=== PATIENT | male | born 1955 | race Caucasian/White ===

== ENCOUNTER 2017-07-06 10:03 | Emergency (ER) | payer BC ==
[2017-07-06 11:56] VITALS: BP 163/90
--- NOTE | 2017-07-06 13:43 | UC ---
FLU HPI - HPI Summary HPI Summary: Pt c/o generalized malaise, chills and body aches, low back pain X 3 days. - History of Current Complaint Chief Complaint: UCGeneralIllness Stated Complaint: FEVER/ACHEY Time Seen by Provider: 07/06/17 13:20 Hx Obtained From: Patient Onset/Duration: Gradual Onset, Lasting Days, Still Present Severity Currently: Mild Severity Initially: Moderate Pain Intensity: 0 Associated Signs & Symptoms: Positive: Fever, Myalgia - Risk Factors Influenza Risk Factors: Chronic Medical or Immunosuppresive Condition - sarcoidosis - Allergy/Home Medications Allergies/Adverse Reactions: Allergies Allergy/AdvReac Type Severity Reaction Status Date / Time No Known Allergies Allergy Verified 07/06/17 11:56 Home Medications: Home Medications Beclomethasone 40 MCG MDI(NF) [Qvar 40 MCG MDI(NF)] 07/06/17 [History] Umeclidin/Vilant 62.5 MDI(NF) [ANORO 62.5/25 Ellipta DEVICE (NF)] 1 inh INH 07/22 [History] predniSONE TAB* [Deltasone TAB*] 07/06/17 [History] PMH/Surg Hx/FS Hx/Imm Hx Previously Healthy: No - sarcoidosis - Surgical History Surgical History: Yes Surgery Procedure, Year, and Place: TONSILS, BRONCOSCOPY, LT [facility], - Family History Known Family History: Positive: Cardiac Disease - Social History Occupation: Retired Alcohol Use: Daily Substance Use Type: None Smoking Status (MU): Never Smoked Tobacco Have You Smoked in the Last Year: No Review of Systems Constitutional: Fever, Chills, Fatigue Skin: Negative Eyes: Negative ENT: Negative Respiratory: Shortness Of Breath Cardiovascular: Negative Gastrointestinal: Abdominal Pain - RUQ Genitourinary: Negative, Vaginal/Penile Itching Neurovascular: Negative Musculoskeletal: Myalgia Neurological: Headache Psychological: Negative Is Patient Immunocompromised?: No All Other Systems Reviewed And Are Negative: Yes Physical Exam Triage Information Reviewed: Yes Appearance: Ill-Appearing Vital Signs: Initial Vital Signs Temp 99.0 F 07/06/17 11:50 Pulse 97 07/06/17 11:50 Resp 18 07/06/17 11:50 BP 163/90 07/06/17 11:50 Pulse Ox 98 07/06/17 11:50 Vital Signs Reviewed: Yes Eye Exam: Normal ENT Exam: Normal Neck exam: Normal Respiratory Exam: Other Respiratory: Positive: Decreased breath sounds Cardiovascular: Positive: Tachycardia Abdomen Description: Positive: Soft, Other: - tenderness RUQ, mild, NO bruit appreciated, denies abdominal pain with food intake. No history of gall stones , or hepatitis Bowel Sounds: Positive: Present Musculoskeletal Exam: Normal Neurological Exam: Normal Psychological Exam: Normal Skin Exam: Normal Flu Course/Dx - Course Course Of Treatment: Pt takes prednisone and Qvar daily, has Hx of sarcoidosis. - Differential Dx/Diagnosis Differential Diagnosis/HQI/PQRI: Bronchitis, Influenza, Pneumonia Provider Diagnoses: Bronchitis Discharge - Discharge Plan Condition: Stable Disposition: HOME Prescriptions: DOXYcycline CAP(*) [DOXYcycline 100MG CAP(*)] 100 mg PO Q12H #20 cap Patient Education Materials: Fever in Adults (ED), Acute Bronchitis (ED) Referrals: Jose Snyder MD [Primary Care Provider] - If Needed Additional Instructions: Please follow up with your PCP as needed or return to clinic. If symptoms worsen or do not improve, please go to the closest ER.
== END 2017-07-06 13:53 | disposition home or self-care (01) ==
LOC: UCCORT 10:03
DX: Z72.89 Other problems related to lifestyle (principal)
CPT/HCPCS: 87502; 99202; G0463

== ENCOUNTER 2018-06-10 09:00 | Emergency (ER) | payer BC ==
[2018-06-10 10:02] VITALS: BP 141/83
--- NOTE | 2018-06-10 10:19 | UC ---
Skin Complaint HPI - HPI Summary HPI Summary: 63 y/o male presents to the urgent care c/o SORE ON LEFT FOOT, TOP OF SECOND TOE X2 WEEKS THAT ISNT GETTING ANY BETTER, AREA IS OPEN AND NOT DRAINING, TOE IS VERY RED - History of Current Complaint Chief Complaint: UCLowerExtremity Time Seen by Provider: 06/10/18 10:13 Stated Complaint: LEFT FOOT SKIN COMPLAINT Hx Obtained From: Patient Pain Intensity: 1 - Allergy/Home Medications Allergies/Adverse Reactions: Allergies Allergy/AdvReac Type Severity Reaction Status Date / Time No Known Allergies Allergy Verified 07/06/17 11:56 PMH/Surg Hx/FS Hx/Imm Hx - Surgical History Surgical History: Yes Surgery Procedure, Year, and Place: TONSILS, BRONCOSCOPY, LT [facility], - Family History Known Family History: Positive: Cardiac Disease - Social History Alcohol Use: Weekly Substance Use Type: None Smoking Status (MU): Never Smoked Tobacco Have You Smoked in the Last Year: No Physical Exam Vital Signs: Initial Vital Signs Temp 97.3 F 06/10/18 09:54 Pulse 71 06/10/18 09:54 Resp 19 06/10/18 09:54 BP 141/83 06/10/18 09:54 Pulse Ox 100 06/10/18 09:54 Course/Dx - Differential Diagnoses - Skin Complaint Differential Diagnoses: Abscess, Cellulitis, Contact Dermatitis, Local Allergic Reaction, Tinea - Diagnoses Provider Diagnosis: Cellulitis of left toe, Elevated BP without diagnosis of hypertension Discharge - Sign-Out/Discharge Documenting (check all that apply): Patient Departure - D/c home All imaging exams completed and their final reports reviewed: Yes - Discharge Plan Condition: Stable Disposition: HOME Prescriptions: Aluminum Sulf/Ca Acetate MINGO* [[place] MINGO*] 1 applic TOPICAL DAILY #1 box Bacitracin OINTMENT* 1 applic TOPICAL BID #1 tube Cephalexin CAP* [Keflex CAP*] 500 mg PO QID #28 cap Patient Education Materials: Cellulitis (ED), Low-Sodium Diet (ED) Referrals: Jose Snyder MD [Primary Care Provider] - 3 Days Additional Instructions: 1-Please take full course of Antibiotic. 2- If redness and swelling doubles in size after 48 hrs of taking antibiotic and fever develops please go to the ER immediately. 3-Avoid standing for long periods of time or flexing your foot, keep it elevated and keep wound clean and dry. Soak your toe w/ the [place] pkts as directed 4-Please F/u with your PCP in 3 days if not improvement of symptoms for further evaluation and treatment. 5-Your BP is elevated today. please decrease salt in your diet, monitor BP and if it continues to be elevated please f/u with your PCP for further management - Billing Disposition and Condition Condition: STABLE Disposition: Home
== END 2018-06-10 12:01 | disposition home or self-care (01) ==
LOC: UCCORT 09:00
DX: L03.032 Cellulitis of left toe (principal); R03.0 Elevated blood-pressure reading, without diagnosis of hypertension
CPT/HCPCS: 99212; G0463

== ENCOUNTER → 2019-02-26 05:51 | Day surgery (SDC) | payer BC ==
[~2019-02-26 05:51] MED LIST: Buffered Lidocaine 1% SYRIN* 1 ML/SYRINGE INTRADERM ONE; Bupivacaine 0.25% SDV PF* 10 ML VIAL INJ ONE; Dexamethasone IV* 4 MG/ML 1 ML (4 MG) IV SLOW PU ONE; Dexamethasone IV* 4 MG/ML 1 ML (4 MG) ONE; Famotidine IV* 10 MG/ML 2 ML (20 mg) IV ONE; Lactated Ringers 1000 ML Bag* 1,000 ML IV SCH; Lidocaine 2% JELLY* 20 ML (for OR use) ONE; Lidocaine 2% PF * 5 ML VIAL ONE; Mineral Oil Sterile, TOPICAL* 25 ML BTL ONE; Naloxone* 0.4 MG/ML 1 ML VIAL IV PRN; Propofol* 10 MG/ML 20 ML BTL ONE
--- NOTE | 2019-02-26 08:53 | OP ---
Operative Report - Blank - Operative Report Date of Operation: 02/26/19 Note: Pre-OP Diagnoses: open wound L ankle, left 2nd toe amputation site Post-op Diagnosis: same Procedure: STSG from L thigh to L ankle, left foot Surgeon: Dede Asst: none Anethesia: local, LEYDA Vegas EBL: min IVF: min Specimen: none Drains: NPWT
[2019-02-26 09:20] VITALS: BP 138/86
--- NOTE | 2019-02-26 10:01 | OP ---
CC: Primary Care Doctor; [facility] * DATE OF OPERATION: 02/26/19 - SDS DATE OF : 51 SURGEON: Isaias Aguayo MD. CHIEF SUPPLY CHAIN OFFICER: None. ANESTHESIOLOGIST: Dr. Vegas. ANESTHESIA: Local MAC anesthesia. 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 OPERATIVE PROCEDURE: Split-thickness skin graft from thigh to left ankle and left toe amputation site. ESTIMATED BLOOD LOSS: Minimal blood loss. FLUIDS: Minimal crystalloid fluid given. Negative pressure wound therapy placed at the ankle graft site at a pressure of 75 mmHg. No drains otherwise. COMPLICATIONS: None. INDICATIONS: The patient was identified in the preoperative area. I discussed the case with him again and consent was signed. The vacuum dressing that was already at the ankle was removed. DESCRIPTION OF PROCEDURE: The patient was taken to the operating room and placed on the operating table in the supine position. Gentle sedation was given. The patient's left thigh was prepped sterilely and the left foot and ankle were prepped with Betadine. Drapes were placed and a time-out was performed. The wound at the ankle was measured. This was approximately 5 x 1 cm. The toe was subcentimeter by subcentimeter. Debridement was then carried out with a scalpel at the ankle site, just sharply skimming the top of the wound taking fibrinous exudate. Bleeding was minimal and stopped with just placing a gauze at the site. Debridement was carried out at the toe with the forceps just lifting off the debris. The wound appeared to be approximately 1.5 mm deep. It was very tender to the touch and there was no bleeding. We measured the area in the thigh and injected lidocaine on the proposed harvest site. We then harvested with a 1-inch blade at 0.16 depth a 4 cm piece of tissue. This split-thickness skin was then fenestrated with scalpel and placed on to the ankle wound. A small piece of it was cut off and placed at the toe amputation site. We sutured it to the ankle site with 3-0 Prolene sutures as well as the amputation site. We placed a bolster at the amputation site and a vacuum dressing at the ankle site. A sterile dressing was applied to the harvest site followed by Tulio wrap. The patient was then transferred to the PACU in stable condition. [id number]/[facility] #: [id number] [id number]
== END | disposition home or self-care (01) ==
LOC: OR 02-19 14:02
PROVIDERS: ATTEND Surgery
DX: T87.81 Dehiscence of amputation stump (principal); T81.31XA Disruption of external operation (surgical) wound, not elsewhere classified, initial encounter; I70.245 Atherosclerosis of native arteries of left leg with ulceration of other part of foot; D86.0 Sarcoidosis of lung
CPT/HCPCS: A9270-GY; J1100; J2704; J3490